=== PATIENT | male | born 1960 | race Caucasian/White ===

== ENCOUNTER 2019-02-09 09:49 | Day surgery (SDC) | payer OTHER ==
[2019-02-09] VITALS (7 sets, daily range): BP systolic 103–170; BP diastolic 64–94; PULSE 40–87; RESP 11–16; Ht 177.8 cm; Wt 65.0 kg
[~2019-02-09] VITALS: Ht 177.8 cm; Wt 65.0 kg
[2019-02-09] MEDS ORDERED: DULO60CA6 PO (10:22)
[2019-02-09] MEDS ORDERED: PREG150C PO (10:23)
[2019-02-09] MEDS ORDERED: BUPIVACAINE 0.25%/EPI (SDV) 30 ML INJ ONE (12:02)
[2019-02-09] MEDS ORDERED: BUPIVACAINE 0.25%/EPI (SDV) 30 ML INJ INJ ONE (12:03)
--- NOTE | 2019-02-09 12:53 | HPN ---
Date/Time of Note Date/Time of Note DATE: 02/09/19 TIME: 12:53 Interval H&P Admission Note Pt. seen H&P reviewed: No system changes PROMISE RUSH MD Feb 09, 2019 12:53
--- NOTE | 2019-02-09 12:53 | PREAC ---
Date/Time of Note Date/Time of Note DATE: 02/09/19 TIME: 12:53 Anesthesia Eval and Record Evaluation Time Pre-Procedure Interview DATE: 02/09/19 TIME: 12:53 Age 58 Sex male NPO: 8 hrs Preoperative diagnosis inguinal hernia Planned procedure hernia repair Past Medical History Past Medical History: Includes Neuro: Peripheral neuropathy Surgery & Anesthesia Issues No known issue Meds Anticoagulation: No Beta Lazaro within 24 hr: No Reason Beta Lazaro not given: Pt. not on B-Lazaro Reported Medications Pregabalin* (Lyrica*) 150 Mg Capsule, 150 MG PO BID, CAP 02/09/19 Duloxetine Hcl* (Cymbalta*) 60 Mg Capsule.dr, 60 MG PO DAILY, CAP 02/09/19 Meds reviewed: Yes Allergies Coded Allergies: No Known Allergy (Unverified , 02/09/19) Allergies Reviewed: Yes Labs/Studies Labs Reviewed: Reviewed by anesthesiologist Result Diagram: 02/09/19 1023 Laboratory Tests 02/09/19 10:23 test: N/A Pre-procedure Exam Last vitals Vital Signs Date Temp Pulse Resp B/P (MAP) Pulse Ox O2 O2 Flow FiO2 Time Delivery Rate 02/09/19 97.0 87 16 103/71 98 Room Air 10:42 (82) Airway: Adequate mouth opening, Adequate thyromental dist Mallampati: Mallampati I Teeth: Normal Lung: Normal Heart: Normal ASA Physical Status ASA physical status: 2 Emergency: None Pre-operative Attestations Prior to commencing anesthesia and surgery, the patient was re-evaluated, there was verification of: *The patient's identity *The results of appropriate recent lab work and preoperative vital signs *The above evaluation not changing prior to induction *Anesthetic plan, risk benefits, alternative and complications discussed with patient/family; questions answered; patient/family understands, accepts and wishes to proceed. URSULA HASKINS DO Feb 09, 2019 12:53
[2019-02-09] MEDS ORDERED: PROPOFOL 20 ML ONE (12:58)
[2019-02-09] MEDS ORDERED: ROCURONIUM 50 MG INJ ONE (12:58)
[2019-02-09] MEDS ORDERED: MIDAZOLAM 1 MG/ML 2 ML INJ ONE ×2 (12:58→14:39)
[2019-02-09] MEDS ORDERED: LIDOCAINE 1% (MDV) 20 ML INJ ONE (12:59)
[2019-02-09] MEDS ORDERED: ROPIVACAINE 0.5 % 30 ML VIAL ONE (13:04)
[2019-02-09] MEDS ORDERED: CEFAZOLIN 1 GM INJ ONE (13:20)
[2019-02-09] MEDS ORDERED: ONDANSETRON 4 MG INJ ONE (14:21)
[2019-02-09] MEDS ORDERED: SUGAMMADEX SODIUM 200 MG/2 ML VIAL IV ONE (14:29)
[2019-02-09] MEDS ORDERED: KETOROLAC 30 MG INJ ONE (14:30)
--- NOTE | 2019-02-09 14:46 | PAC ---
Date/Time of Note Date/Time of Note DATE: 02/09/19 TIME: 14:46 Post-Anesthesia Notes Post-Anesthesia Note Last documented vital signs Vital Signs Date Temp Pulse Resp B/P (MAP) Pulse Ox O2 O2 Flow FiO2 Time Delivery Rate 02/09/19 98 65 16 105/55 98 Room Air 1445 Activity: WNL Respiratory function: WNL Cardiovascular function: WNL Mental status: Baseline Pain reasonably controlled: Yes Hydration appropriate: Yes Nausea/Vomiting absent: Yes URSULA HASKISN DO Feb 09, 2019 14:46
--- NOTE | 2019-02-09 14:52 | OPR ---
Date/Time of Note Date/Time of Note DATE: 02/09/19 TIME: 14:41 Operative Report Procedure Date: Feb 09, 2019 Preoperative Diagnosis Recurrent left inguinal hernia without obstruction or gangrene Postoperative Diagnosis Recurrent left inguinal hernia without obstruction or gangrene Operation/Procedure Performed Open repair of recurrent left inguinal hernia with mesh Surgeon see signature line Bacteriologist Soil Shar Oliver MD Anesthesia Type: general Anesthesiologist: URSULA HASKINS DO Estimated Blood Loss: minimal Transfusion none Specimen None Grafts/Implants Ethicon Ultrapro Plug size medium Complications none Pt Condition Post Procedure: stable Disposition: PACU Indications The patient is a 58-year-old male with a history of a prior open left internal hernia repair with mesh several years ago who presented to the office complaining of a painful left groin bulge. He was diagnosed on clinical exam as having a recurrent left inguinal hernia. The patient was scheduled for open left inguinal hernia repair with mesh to prevent sequelae of hernia disease which include, but are not limited to: Incarceration and strangulation. All risks and benefits of the procedure including but not limited to: Wound infection, excessive bleeding, postoperative seroma/hematoma formation, nerve injury which may be temporary versus permanent, injury to the reproductive organs including the vas deferens and the testicle which may lead to testicular atrophy, injury to intra-abdominal organs necessitating subsequent operation, hernia recurrence, chronic pain, etc. were all explained to the patient full detail. The patient fully understood and wished to proceed with the procedure. Informed consent was therefore obtained. Medical and cardiac clearance were obtained prior to surg cristian. Procedure Description The patient was brought to the operating room and placed supine on the operating table. Bilateral sequential compression devices were placed on both lower extremities. A dose of broad-spectrum perioperative intravenous antibiotics was given. After the induction of smooth general anesthesia a tap block was performed by the anesthesiologist and will be documented by him separately. The patient's abdomen and bilateral groins were then prepped and draped in standard surgical fashion. After performance of the surgical timeout an oblique incision was made over the patient's prior incision using a 15 blade scalpel from the left pubic tubercle towards the left anterior superior iliac spine. Incision was carried down through the skin into the subcutaneous tissues using Bovie electrocautery. There was scarring and fibrous replacement of Dontrell's fascia identified. Dontrell's fascia was incised and the aponeurosis of the external oblique muscle was reached. The aponeurosis of the external oblique muscle was then incised in the direction of its fibers using a 15 blade scalpel and further opened using electrocautery. The spermatic cord was then identified adhered to the floor of the inguinal canal. Using blunt dissection mobilization of the spermatic cord was then begun off of the floor of the inguinal canal. The patient's old mesh was identified and was noted to have in its medial aspect. This had resulted in a moderate sized direct inguinal hernia defect. Once mobilized off of the floor the inguinal canal the spermatic cord was encircled using a [place] drain. The cord structures were identified and preserved throughout the entirety of the procedure. Dissection of the direct hernia sac was then performed off of the cremasteric muscles and surrounding tissues. The ilioinguinal and iliohypogastric nerves were identified and noted to be densely adhered to the patient's prior mesh. They therefore both had to be sacrificed in order to safely separate the mesh. The superior aspect of the mesh was densely adhered and stuck to the spermatic cord such that dissection for removal may have resulted in devascularization of the testicle. Therefore, it was decided to leave the old mesh. Dissection was continued towards the neck of the hernia. The sac was then reduced back into the intra-abdominal cavity. The direct hernia defect was then repaired using a medium sized Ethicon ultra pro plug. The plug was sutured in place using interrupted 3-0 Vicryl sutures. The patient's old mesh was then used to reconstruct the floor of the inguinal canal. It was sutured to the pubic tubercle shelving edge of the external oblique aponeurosis laterally and to the conjoined tendon medially using interrupted 2-0 Novafil sutures. The plug and the mesh was soaked in antibiotic irrigation prior to placement in the field. With the repair complete it was ex amined and noted to be hemostatic and tension-free. Adequacy of the repair was confirmed via Valsalva maneuver performed by the anesthesiologist. The wound cavity was then irrigated with more antibiotic containing irrigation. Spermatic cord was then placed back into its anatomical position. The aponeurosis of the external oblique muscle was then reapproximated using a running 3-0 Vicryl suture. Incision was then closed in layers using a running 3-0 Vicryl suture for the Dontrell's fascia. The skin was then reapproximated using 4-0 Monocryl suture in a running subcuticular fashion. Further local anesthesia was then injected around the incision site. Incision was cleaned and Dermabond was applied. The patient was awoken from anesthesia and transferred to the recovery room in stable condition. Both testicles were palpated and noted to be in their anatomical positions at the end of the case. All counts were correct at the end of the case 2. PROMISE RUSH MD Feb 09, 2019 14:52
[2019-02-09] MEDS ORDERED: IBUPROFEN 600 MG TAB PO PRN (15:00)
[2019-02-09] MEDS ORDERED: HYDROCODONE/APAP (5/325) TAB PO PRN ×2 (15:00)
[2019-02-09] MEDS ORDERED: morphine 2 MG INJ IV PRN (15:00)
[2019-02-09] MEDS ORDERED: KETOROLAC 30 MG INJ IV PRN (15:00)
[2019-02-09] MEDS ORDERED: HYDROmorphONE 1 MG/5 ML IV SYRINGE IV PRN ×2 (15:00)
[2019-02-09] MEDS ORDERED: OXYCODONE/ACETAMINOPHEN (5/325) TAB PO PRN ×2 (15:00)
[2019-02-09] MEDS ORDERED: ONDANSETRON 4 MG INJ IV PRN (15:00)
== END 2019-02-09 17:48 | disposition home or self-care (01) ==
LOC: SDS 09:49
PROVIDERS: ATTEND Surgery
DX: K40.91 Unilateral inguinal hernia, without obstruction or gangrene, recurrent (principal); N50.89 Other specified disorders of the male genital organs; F41.9 Anxiety disorder, unspecified; Z85.028 Personal history of other malignant neoplasm of stomach
CPT/HCPCS: 49520; 55520; 80053; C1781; J0690; J1885; J2250; J2405; J2795; J3010; Z7512; Z7610